=== PATIENT | male | born 1980 | race Caucasian/White ===

== ENCOUNTER 2024-07-14 13:34 | Emergency (ER) | payer OTHER, SELFPAY ==
[2024-07-14 13:42] VITALS: BP 142/75; PULSE 128; RESP 24; TEMP 36.4; O2SAT 99
[2024-07-14 14:28] LABS: EDUAAPPEAR Cloudy; EDUABILI 1+ (Negative); EDUABLOOD 3+ (Negative); EDUACOLOR1 Brown; EDUAGLUCOSE Negative (Negative); EDUAKETONE Negative (Negative); EDUALEUKO Negative (Negative); EDUANITRATE Negative (Negative); EDUAPH 5.5; EDUAPROTEIN 3+ (Negative); EDUAUROBILI 0.2
--- NOTE | 2024-07-14 14:49 | ED_ITS ---
HPI - General Adult General Chief complaint: Urogenital-Male Stated complaint: Urinary Problem Source: patient Mode of arrival: ambulatory Limitations: no limitations History of Present Illness HPI narrative: Patient presents for evaluation of right flank pain. Yesterday he had some right-sided abdominal discomfort. Approximately 2 hours ago developed right flank pain. Pain has been intermittent, coming in waves. He states he noted hematuria when providing a urine sample today. He has experienced diaphoresis, nausea, and vomiting. Denies any urinary hesitancy or decreased force of urinary stream. Last bowel was today. No history of kidney stones. He states he does not consume enough fluids. Related Data Allergies Allergy/AdvReac Type Severity Reaction Status Date / Time Penicillins Allergy Intermediate Rash Verified 07/14/24 13:55 Review of Systems Review of Systems: CONSTITUTIONAL: Reports diaphoresis. Denies chills EYES: Denies visual changes, redness, or discharge. ENT: Denies rhinorrhea, congestion, sore throat, or otalgia. CARDIOVASCULAR: Denies chest pain, palpitations, or edema. RESPIRATORY: Denies cough or dyspnea. GASTROINTESTINAL: Reports right sided flank pain, abdominal pain, nausea and vomiting GENITOURINARY: Reports hematuria. Denies dysuria SKIN: Denies rash or itching. MUSCULOSKELETAL: Denies back pain, joint pain, or myalgia. NEUROLOGIC: Denies headache, numbness, dizziness, or weakness. PSYCHIATRIC: Denies anxiety or depression. PMFSH Past Medical History Medical History No pertinent past medical history Surgical History Surgical History No pertinent past surgical history Family History Family History Mother Family history non-contributory Social History Social History Alcohol intake: current Drinks per week: 20 Gender identity (if verbalized by the patient): Male Spiritual care concerns: No Exam Narrative: GENERAL: Initially diaphoretic. Well-nourished, and in no acute distress. HEAD: Normocephalic, atraumatic. EYES: PERRLA and EOMI. ENT: Nares clear, no rhinorrhea or epistaxis. Mucous membranes moist. Oropharynx without tonsillar hypertrophy exudate or other lesions. Bilateral TMs pearly hurst nonbulging NECK: Supple. No adenopathy or masses. No carotid bruits or JVD CHEST: Clear to auscultation. No respiratory distress. No wheezes rales or rhonchi HEART: Regular rate and rhythm. No murmur heard. Normal peripheral pulses. ABDOMEN: Soft, nontender, nondistended, normal active bowel sounds. EXTREMITIES: Normal range of motion. No edema. BACK: No CVA tenderness. SKIN: Warm, dry, no rash. NEURO: No focal deficits. Alert and oriented x3. PSYCH: Normal mood and affect. Course Course Emergency Course: This is a 44-year-old male who presented for evaluation right flank pain. Primary consideration was for kidney stone. I recommended he be transferred to the hospital for further evaluation. He indicated he did not want to go due to concerns regarding cost. We did monitor him here. His heart rate normalized. His pain subsided. I did advise if he has a kidney stone symptoms could be recurrent. He verbalized understanding. He would like to try to be managed at with oral medications. Will discharge with prescriptions Bactrim, Flomax, Zofran Hydrocodone. I provided with a phone number for Urology. I did recommend go to hospital the event that he has recurrent symptoms patient verbalized understanding is in agreement with care plan. Level of Care: Express Care Visit Vital Signs Vital signs: Vital Signs Temperature 36.4 C L 07/14/24 13:42 Pulse Rate 128 H 07/14/24 13:42 Respiratory Rate 24 H 07/14/24 13:42 Blood Pressure 142/75 H 07/14/24 13:42 Pulse Oximetry 99 07/14/24 13:42 Oxygen Delivery Room Air 07/14/24 13:42 Temperature 36.4 C L 07/14/24 13:42 Pulse Rate 128 H 07/14/24 13:42 Respiratory Rate 24 H 07/14/24 13:42 Blood Pressure 142/75 H 07/14/24 13:42 Pulse Oximetry 99 07/14/24 13:42 Oxygen Delivery Room Air 07/14/24 13:42 Medical Decision Making Vital Signs Vital Signs: Vital Signs Temperature 36.4 C L 07/14/24 13:42 Pulse Rate 128 H 07/14/24 13:42 Respiratory Rate 24 H 07/14/24 13:42 Blood Pressure 142/75 H 07/14/24 13:42 Pulse Oximetry 99 07/14/24 13:42 Oxygen Delivery Room Air 07/14/24 13:42 Temperature 36.4 C L 07/14/24 13:42 Pulse Rate 128 H 07/14/24 13:42 Respiratory Rate 24 H 07/14/24 13:42 Blood Pressure 142/75 H 07/14/24 13:42 Pulse Oximetry 99 07/14/24 13:42 Oxygen Delivery Room Air 07/14/24 13:42 Lab Data Labs: Lab Results 07/14/24 Range/Units 14:25 POC Urine Color Brown POC Urine Clarity Cloudy POC Urine pH 5.5 POC Ur Specif [place] 1.030 POC Urine Protein 3+ (Negative) POC Ur Glucose (UA) Negative (Negative) POC Urine Ketones Negative (Negative) POC Urine Blood 3+ (Negative) POC Urine Nitrite Negative (Negative) POC Urine Bilirubin 1+ (Negative) POC Urine Urobilinogen 0.2 POC U Leukocyte Esteras Negative (Negative) Discharge Plan Discharge Clinical Impression: Acute right flank pain Patient Disposition: Home Condition: Stable Instructions: Antibiotic Form, Kidney Stones (ED) Additional Instructions: Please increase water intake Avoid alcohol If you have persistent or worsening symptoms, please go to the ER Patient Language: Irish Prescriptions: New sulfamethoxazole-trimethoprim [Bactrim DS] 800-160 mg tablet 1 tablet PO Q12H Qty: 14 0RF tamsulosin [Flomax] 0.4 mg capsule 0.4 mg PO DAILY Qty: 10 0RF ondansetron 4 mg tablet,disintegrating 4 mg PO Q8H PRN (Reason: nausea and vomiting) Qty: 20 0RF Follow-up/Referrals: Shelby,MD Lewis [Primary Care Provider] - See Aden MD [Physician] - Time of Disposition: 14:16
== END 2024-07-14 14:20 | disposition home or self-care (01) ==
PROVIDERS: Emergency Provider Nurse Practitioner; PCP Hospitalist
DX: R10.9 Unspecified abdominal pain (principal)
CPT/HCPCS: 81003; 87086; 99203; G0463